=== PATIENT | male | born 1980 | race Caucasian/White ===

== ENCOUNTER 2019-03-22 07:45 | Observation (INO) | payer OTHER ==
--- NOTE | 2019-03-22 07:48 | EDPHY ---
H & P Time Seen by Provider: 03/22/19 07:50 HPI/ROS: CHIEF COMPLAINT: Abdominal pain HISTORY OF PRESENT ILLNESS: I was initially called by Dr. Cat from urgent care [facility] at 7:30 a.m. Regarding this patient. He initially went to urgent care was referred here for evaluation. Patient said he started having generalized abdominal pain yesterday in the late morning and then it got worse yesterday evening and overnight. Today it is on his left lower quadrant, worse with movement, moderate to severe in nature. Not associated with fever or chills or vomiting or diarrhea or urinary complaint , but feels a little bit constipated. Denies recent injury or trauma. REVIEW OF SYSTEMS: Eye: no change in vision ENT: no sore throat Cardiac: no chest pain or syncope Pulmonary: no cough or SOB Abdomen: HPI Musculoskeletal: no back pain Skin: no rash Neuro: no headache Constitutional: no fever : no urinary symptoms A comprehensive 10 point review of systems is otherwise negative aside from elements mentioned in the history of present illness. PAST MEDICAL HISTORY: Negative, no previous surgery Social history: Here with his General Appearance: Alert and conversant, cooperative. Eyes: No scleral icterus. ENT, Mouth: Normal mucous membranes. Respiratory: Normal respiratory effort, breath sounds equal, lungs are clear to auscultation. Cardiovascular: Regular rate and rhythm. Gastrointestinal: Left lower quadrant tenderness and decreased bowel sounds. No hernia. Normal male . Neurological: Alert, face symmetric, normal motor and sensory in extremities. Skin: Warm and dry, no rashes. Musculoskeletal: No peripheral edema. Psychiatric: Not agitated. Emergency Department course/MDM: Differential considered including but not limited to constipation, diverticulitis, appendicitis, intestinal obstruction. CT abdomen discussed and consented. Declined pain medication. 904: Descending sigmoid colitis and diverticulitis per Dr. Marqeuz, micro perforation but no abscess. 910: discussed with patient, admission recommended with severity of pain and micro perforation and leukocytosis, patient is in agreement. Sulfa allergy, Zosyn 3.375 g, hospitalist consult. Smoking Status: Never smoked Constitutional: Initial Vital Signs Temperature (C) 36.6 C 03/22/19 07:49 Heart Rate 80 03/22/19 07:49 Respiratory Rate 16 03/22/19 07:49 Blood Pressure 110/79 03/22/19 07:49 O2 Sat (%) 94 03/22/19 07:49 O2 Delivery Mode Room Air Allergies/Adverse Reactions: Sulfa (Sulfonamide Antibiotics) Allergy (Verified 03/22/19 07:49) Medical Decision Making - Diagnostics Imaging Results: Imaging Impressions Abdomen CT 03/22/19 08:22 Impression: 1. Acute diverticulitis of the distal descending-proximal sigmoid colon measuring 9 cm with microperforation and multiple sigmoid diverticula. 2. No drainable abscess, bowel obstruction, or acute appendicitis. 3. Multiple sigmoid diverticula. 4. L5-S1 spondylolytic grade 1 spondylolisthesis. 5. Recommend follow-up colonoscopy when the patient's medical condition permits. Findings and recommendations discussed with emergency department physician, Aram Lion MD at 0907 hours on March 22, 2019. Final report concurs with initial preliminary interpretation. Imaging: Discussed imaging studies w/ iuss acoustic analyst Radiologist Consult/Admit Bed Type: [facility] 923 am for Vik - Data Points Laboratory Results: Laboratory Results 03/22/19 08:09 03/22/19 08:09 03/22/19 03/22/19 03/22/19 08:13 08:09 08:09 WBC 15.51 10^3/uL H 10^3/uL (3.80-9.50) RBC 4.96 10^6/uL 10^6/uL (4.40-6.38) Hgb 16.0 g/dL g/dL (13.7-17.5) POC Hgb 16.0 gm/dL gm/dL (13.7-17.5) Hct 45.0 % % (40.0-51.0) POC Hct 47 % % (40-51) MCV 90.7 fL fL (81.5-99.8) MCH 32.3 pg pg (27.9-34.1) MCHC 35.6 g/dL g/dL (32.4-36.7) RDW 11.8 % % (11.5-15.2) Plt Count 177 10^3/uL 10^3/uL (150-400) MPV 12.6 fL H fL (8.7-11.7) Neut % (Auto) 88.0 % H % (39.3-74.2) Lymph % (Auto) 3.7 % L % (15.0-45.0) [place] % (Auto) 7.6 % % (4.5-13.0) Eos % (Auto) 0.1 % L % (0.6-7.6) Baso % (Auto) 0.2 % L % (0.3-1.7) Nucleat RBC Rel Count 0.0 % % (0.0-0.2) Absolute Neuts (auto) 13.65 10^3/uL H 10^3/uL (1.70-6.50) Absolute Lymphs (auto) 0.57 10^3/uL L 10^3/uL (1.00-3.00) Absolute Monos (auto) 1.18 10^3/uL H 10^3/uL (0.30-0.80) Absolute Eos (auto) 0.02 10^3/uL L 10^3/uL (0.03-0.40) Absolute Basos (auto) 0.03 10^3/uL 10^3/uL (0.02-0.10) Absolute Nucleated RBC 0.00 10^3/uL 10^3/uL (0-0.01) Immature Gran % 0.4 % % (0.0-1.1) Immature Gran # 0.06 10^3/uL 10^3/uL (0.00-0.10) RBC/WBC/PLT Morphology TNP Platelet Estimate TNP POC Sodium 139 mEq/L mEq/L (135-145) Sodium 137 mEq/L mEq/L (135-145) POC Potassium 3.7 mEq/L mEq/L (3.3-5.0) Potassium 4.0 mEq/L mEq/L (3.5-5.2) POC Chloride 103 mEq/L mEq/L (97-110) Chloride 103 mEq/L mEq/L (97-110) Carbon Dioxide 22 mEq/l mEq/l (22-31) POC Total CO2 22 mEq/L mEq/L (22-31) Anion Gap 12 mEq/L mEq/L (6-14) POC BUN 13 mg/dL mg/dL (7-23) BUN 14 mg/dL mg/dL (7-23) Creatinine 0.9 mg/dL mg/dL (0.7-1.3) POC Creatinine 1.0 mg/dL mg/dL (0.7-1.3) Estimated GFR > 60 Glucose 111 mg/dL H mg/dL (70-100) POC Glucose 117 mg/dL H mg/dL (70-100) Calcium 10.0 mg/dL mg/dL (8.5-10.4) Medications Given: Discontinued Medications Sodium Chloride (Ns) 1,000 mls @ 0 mls/hr IV EDNOW ONE; Wide Open PRN Reason: Protocol Stop: 03/22/19 08:03 Last Admin: 03/22/19 08:07 Dose: 1,000 mls Sodium Chloride (Ns) 1,000 mls @ 0 mls/hr IV EDNOW ONE; Wide Open PRN Reason: Protocol Stop: 03/22/19 09:19 Last Admin: 03/22/19 09:22 Dose: 1,000 mls Piperacillin/Tazobactam/Dextrose (Zosyn 3.375 Gm (Premix)) 50 mls @ 100 mls/hr IV EDNOW ONE PRN Reason: Protocol Stop: 03/22/19 09:47 Last Admin: 03/22/19 09:50 Dose: 50 mls Point of Care Test Results: Chemistry 03/22/19 08:13 POC Sodium 139 mEq/L mEq/L (135-145) POC Potassium 3.7 mEq/L mEq/L (3.3-5.0) POC Chloride 103 mEq/L mEq/L (97-110) POC Total CO2 22 mEq/L mEq/L (22-31) POC BUN 13 mg/dL mg/dL (7-23) POC Creatinine 1.0 mg/dL mg/dL (0.7-1.3) POC Glucose 117 mg/dL H mg/dL (70-100) ISTAT H&H 03/22/19 08:13 POC Hgb 16.0 gm/dL gm/dL (13.7-17.5) POC Hct 47 % % (40-51) Departure - Departure Disposition: [facility] Inpatient Acute Clinical Impression: Sigmoid diverticulitis Condition: Good
[2019-03-22] MEDS ORDERED: NS 1,000 ML IV ONE ×2 (08:02→09:18)
[2019-03-22 08:22] LABS: PLATELET COUNT 177 10^3/uL (150-400)
[2019-03-22] MEDS ORDERED: IOPAMIDOL (ISOVUE-300) 100 ML BTL ONE (08:29)
[2019-03-22] MEDS ORDERED: PIPERACILLIN/TAZO 3.375 GM/DEX 50 ML IV ONE (09:18)
[2019-03-22] MEDS ORDERED: ONDANSETRON DISINTEGRATING 4 MG TAB PO PRN (11:41)
[2019-03-22] MEDS ORDERED: ONDANSETRON 4 MG/2 ML VIAL IVP PRN (11:41)
[2019-03-22] MEDS ORDERED: ACETAMINOPHEN 325 MG TAB PO PRN (11:41)
--- NOTE | 2019-03-22 12:29 | GHP ---
[f rep st] HISTORY AND PHYSICAL DATE OF ADMISSION: 03/22/2019 CHIEF COMPLAINT: Abdominal pain. HPI: The patient is a 38-year-old healthy man who comes in with 1 day of abdominal pain. He says ye sterday after breakfast, he started to develop some abdominal pain. His stomach hurt and persistentl y worsened over the day. Pain was primarily in the left lower quadrant. He was able to eat dinner t hat night and ate some pizza. However, after dinner overnight, his abdominal pain got significantly worse to a point where he came into the ER for further evaluation in the morning. He denies fevers. He has had slight chills, mild nausea. No emesis, no diarrhea. His last bowel movement was on . Other than that, his urination has been normal. He denies any chest pain, cough, shortness of b reath. He has had no other symptoms. REVIEW OF SYSTEMS: A 10-point review of systems was done and is negative except as stated in the HPI . PAST MEDICAL HISTORY: Allergies and chronic sinusitis. SURGERIES: He has had 2 sinus surgeries and ankle ORIF. FAMILY HISTORY: Mother and father are healthy. SOCIAL HISTORY: He relocated here from [place] in the early . He is . They have no kids. Currently, he works in sales and manages accounts on [employer]. He does not smoke and occasionally dri nks beer. He does say his diet is poor. He often eats out. MEDICATIONS: Nasonex. ALLERGIES: Sulfa. PHYSICAL EXAM: VITAL SIGNS: Afebrile, heart rate 75, blood pressure 121/71, respirations 16. He is 96% on room air. GENERAL: He is a healthy-appearing 38-year-old man in mild distress. He is alert and oriented. Speech is clear and fluent. HEENT: Atraumatic. Pupils equal, round, and reactive. Extraocular movements intact. Mucous membranes moist. Oropharynx clear. NECK: Supple. No adenop athy. No bruits. HEART: Regular rate and rhythm. No murmur, gallop, or rub. LUNGS: Clear bilate rally without wheeze, rhonchi, or rales. He is in no distress. ABDOMEN: Slightly distended. He do es have increased tenderness with guarding in the left lower quadrant. Other than that, the rest of his abdominal exam is fairly benign. No obvious masses. EXTREMITIES: No clubbing, cyanosis, or denilson ma. MUSCULOSKELETAL: No joint deformities or effusions. NEUROLOGIC: His speech is fluent. He is a lert and oriented. He is moving all 4 extremities equally. SKIN: Intact. No rashes. PSYCHIATRIC: Normal mood and appropriate. LABORATORY DATA: CBC shows a white count of 15.5 with a left shift. H and H and platelet count are normal. Electrolytes and renal function are all within normal limits. Mildly elevated glucose. Abd ominal CT shows acute diverticulitis of the distal descending proximal sigmoid colon measuring 9 cm w ith microperforations and multiple sigmoid diverticula. No drainable abscess, bowel obstruction, or acute appendicitis. ASSESSMENT AND PLAN: A 38-year-old with abdominal pain. Certainly the cause of this is diverticulit is. He does have evidence of microperforations, but no evidence of abscess or free air. Plan: Admit to the hospital for observation. Start him on IV antibiotics, bowel rest, and IV fluids and pain control. Will reassess in the morning regarding his pain, if he can start clear liquids, a nd see how he is doing at that point. /[id number]/MODL
[2019-03-22] MEDS: POTASSIUM Cl (KCl) 20 MEQ in D5W LR 1,000 ML IV SCH ×2 (13:40→23:05)
[2019-03-22] MEDS: FLUTICASONE NASAL 120 SPRAYS/16 GM MDI EACHNARE SCH (21:49)
[2019-03-23 05:20] LABS: PLATELET COUNT 157 10^3/uL (150-400)
--- NOTE | 2019-03-23 09:47 | HOSPPROG ---
Hospitalist Progress Note Assessment/Plan: Healthy 38-year-old man with diverticulitis and microperforations. His pain is slightly better today although he has been NPO and still is quite tender on exam. # diverticulitis complicated by microperforation is a but no discrete abscess. * Advanced to clears to see if this worsens his pain * Continue IV antibiotics and IV fluids * Dietary consult regarding diet options once discharged from the hospital Subjective: Slightly better today has not eaten yet. Objective: Vital Signs Temp Pulse Resp BP Pulse Ox 36.7 C 58 L 14 121/73 H 95 03/23/19 08:40 03/23/19 08:40 03/23/19 08:40 03/23/19 08:40 03/23/19 08:40 Laboratory Results 03/23/19 04:25 03/23/19 04:25 03/22/19 03/23/19 03/24/19 05:59 05:59 05:59 Intake Total 1999 Balance 1999 - Physical Exam Constitutional: no apparent distress Respiratory: no respiratory distress Gastrointestinal: tenderness (Left lower quadrant), guarding ICD10 Worksheet Patient Problems: Problems Problem Status Onset Sigmoid diverticulitis Acute
--- NOTE | 2019-03-23 09:48 | ASMTCASEMG ---
Living Arrangements What is your living Answers: With Spouse arrangement? Who do you live with? Type Of Residence What kind of residence do Answers: House you live in? Discharge Plan Comments Coordination Status Comments Notes: Patient is a 38yo male who developed abdominal pain which significantly worsened and brought the patient to the ER. Patient is being admitted OBS for IV ABX, bowel rest, pain control and IV fluids. No therapies ordered. Patient will most likely discharge independently. CM available if d/c needs arise. Date Signed: 03/23/2019 09:46 AM Electronically Signed By:Tiffanie Vasquez LCSW
[2019-03-23] MEDS: PROMETHAZINE HCL 25 MG/ML INJ IVP PRN ×2 (11:37→22:26)
[2019-03-23] MEDS: POTASSIUM Cl (KCl) 20 MEQ in D5W LR 1,000 ML IV SCH (19:15)
[2019-03-23] MEDS: FLUTICASONE NASAL 120 SPRAYS/16 GM MDI EACHNARE SCH (20:59)
[2019-03-23] MEDS ORDERED: HYDROCODONE/APAP 5/325 TAB PO PRN (22:49)
[2019-03-24] MEDS: POTASSIUM Cl (KCl) 20 MEQ in D5W LR 1,000 ML IV SCH (04:27)
[2019-03-24] MEDS: PROMETHAZINE HCL 25 MG/ML INJ IVP PRN (04:37)
--- NOTE | 2019-03-24 10:26 | GDS ---
[f rep st] DISCHARGE SUMMARY DIAGNOSIS: Diverticulitis with a microperforation noted. No free air. PROCEDURES DONE: CT scan of the abdomen and pelvis with contrast showed an acute diverticulitis of t he distal descending proximal sigmoid colon measuring 9 cm with microperforation and multiple sigmoid diverticula. No drainable abscess. HOSPITAL COURSE: The patient is a 38-year-old relatively healthy man on no medications, who comes in with acute abdominal pain. He was noted to have findings consistent with diverticulitis on CT scan, was admitted to the hospital, placed n.p.o. and on IV antibiotics. Over the first 24 hours, he did improve but still had a little bit of mild GI upset, so was transitioned to a clear liquid diet. He continued to improve, and on the day of discharge, his pain is much better and we will try to advance his diet, transition him to oral antibiotics, and discharge later in the day. CONDITION ON DISCHARGE: Good. DISCHARGE MEDICATIONS: Please see discharge medication form. He will be discharged on Flagyl and Le vaquin to complete 10 days. FOLLOWUP INSTRUCTIONS: He should follow up with his primary care provider within a week, sooner if n eeded. He also should get a colonoscopy done in the near future, i.e. 3 months, for further assessme nt of his diverticulosis. This can be set up as an outpatient. Total time spent with patient on day of discharge and coordination of care is 35 minutes. /[id number]/MODL
[2019-03-24 11:04] VITALS: BP 114/70
== END 2019-03-24 15:14 | disposition home or self-care (01) ==
LOC: F3E 10:42
PROVIDERS: ADMIT Internal Medicine; ATTEND Internal Medicine
DX: K57.32 Diverticulitis of large intestine without perforation or abscess without bleeding (principal); E86.9 Volume depletion, unspecified; Z88.2 Allergy status to sulfonamides
CPT/HCPCS: 82435-PO; 82565-PO; 82947-PO; 84132-PO; 84295-PO; 84520-PO; 85014-ER; G0378; J1956; J2270; J2543; J2550; J3480; Q9967